=== PATIENT | male | born 1970 | race Caucasian/White ===

== ENCOUNTER 2020-03-29 16:15 | Emergency (ER) | payer OTHER ==
[~2020-03-29] VITALS: Ht 188 cm; Wt 108.9 kg
[2020-03-29 19:26] LABS: CALCIUM 8.7 mg/dL (8.5-10.1); CARBON DIOXIDE 33.2 mmol/L (21-32); CHLORIDE SERUM 108 mmol/L (98-107); CREATININE SERUM 0.5 mg/dL (0.7-1.3); GFR1 > 60 mL/min; GLUCOSE SERUM 103 mg/dL (74-106); SODIUM SERUM 143 mmol/L (136-145)
[2020-03-29 19:29] LABS: ALKALINE PHOSPHATASE 147 U/L (46-116); ALT/SGPT 66 U/L (16-63); AST/SGOT 24 U/L (15-37); BILIRUBIN TOTAL 0.32 mg/dL (0.20-1.00); LIPASE 135 IU/L (73-393); TOTAL PROTEIN, SERUM 7.1 g/dL (6.4-8.2)
[2020-03-29 19:32] LABS: ALBUMIN 3.2 g/dL (3.4-5.0)
[2020-03-29 20:01] LABS: microscopic required? NO
[2020-03-29 20:05] VITALS: Ht 188 cm; Wt 108.9 kg
[2020-03-29 20:06] LABS: BASOPHIL % 0.4 % (0-2); PLATELET COUNT 197 x10^3mcL (130-400); RED CELL DISTRIBUTION WIDTH 12.7 % (11.5-14.5)
[2020-03-29 20:41] LABS: urine erythrocyte NEGATIVE (NEGATIVE)
[2020-03-29 22:25] VITALS: BP 113/52
== END 2020-03-29 22:25 | disposition home or self-care (01) ==
LOC: ED 16:15
PROVIDERS: Emergency Medicine
DX: R10.9 Unspecified abdominal pain (principal); R07.89 Other chest pain; M54.9 Dorsalgia, unspecified; G82.20 Paraplegia, unspecified; Z20.828 Contact with and (suspected) exposure to other viral communicable diseases
CPT/HCPCS: J7030; U0003